=== PATIENT | male | born 1950 | race African-American/Black ===

== ENCOUNTER 2021-11-30 11:38 | Emergency (ER) | payer MEDICARE, MEDICAID ==
[~2021-11-30] VITALS: Ht 177.8 cm; Wt 73.0 kg
[~2021-11-30 11:38] MED LIST: DIVALPROEX; MAG-OXIDE
[2021-11-30 12:14] VITALS: BP 157/88
[2021-11-30 12:48] LABS: BASOPHILS % 0.8 % (0.0-2.0); HEMOGLOBIN. 14.6 g/dL (14.0-18.0); LYMPHOCYTES % 22.2 % (20.0-50.0); MEAN CORPUSCULAR HEMOGLOBIN 28.8 pg (28.0-32.0); MEAN CORPUSCULAR VOLUME 86.7 fL (80.0-94.0); MEAN PLATELET VOLUME 8.7 fl (7.4-10.4); MONOCYTES % 7.3 % (2.0-8.0); NEUTROPHILS % 68.7 % (40.0-76.0); PLATELET 155 x1000/uL (130-400); RED BLOOD CELL COUNT 5.08 mill/uL (4.7-6.1); RED CELL DISTRIBUTION WIDTH 14.7 % (11.6-14.6)
[2021-11-30 12:57] LABS: INR 0.9; PROTHROMBIN TIME 10.2 sec (9.6-11.0)
[2021-11-30 13:07] LABS: CHLORIDE 105 mEq/L (98-107)
[2021-11-30] MEDS ORDERED: LORAZEPAM 1MG TABLET PO PRN (13:30)
[2021-11-30] MEDS ORDERED: AMLODIPINE 5MG TABLET PO NR (14:00)
[2021-11-30] MEDS ORDERED: ENOXAPARIN 60MG/0.6ML SYR SUBCUT NR (17:00)
[2021-11-30] MEDS ORDERED: LEVETIRACETAM 500MG/5ML CUP PO SCH (18:00)
[2021-11-30] MEDS ORDERED: AMLODIPINE 5MG TABLET PO SCH (21:00)
[2021-11-30] MEDS ORDERED: ATORVASTATIN CALCIUM 10MG TABLET PO SCH (21:00)
[2021-12-01] MEDS ORDERED: SODIUM CHLORIDE 0.45% 1,000 ML IV SCH (06:00)
[2021-12-01] MEDS ORDERED: MELOXICAM 7.5MG TABLET PO SCH (09:00)
[2021-12-01] MEDS ORDERED: ASPIRIN 81MG EC TABLET PO SCH (09:00)
== END 2021-11-30 17:54 | disposition left against medical advice (07) ==
LOC: ER 12:29 → EDBEDREQ 14:00 → EDBEDREQTM 14:00 → ER 17:54 → CANBEDREQ 20:32
DX: R42 Dizziness and giddiness (principal); N28.9 Disorder of kidney and ureter, unspecified; F12.10 Cannabis abuse, uncomplicated; Z20.822 Contact with and (suspected) exposure to COVID-19; Z86.59 Personal history of other mental and behavioral disorders; Z98.890 Other specified postprocedural states
CPT/HCPCS: 36415; 71045; 80053; 83735; 83880; 84484; 85025; 85610; 87426; 93005; 99285; C9803

== ENCOUNTER → 2021-12-23 | Day surgery (SDC) | payer MEDICARE, MEDICAID ==
[~2021-12-23] MED LIST changes: +ACETAMINOPHEN 325MG TABLET PO PRN; +AMLO10TA80 PO; +ASPI-1406 PO; +ATROPINE SULFATE 1MG/10ML SYR IV PRN; +FENTANYL CITRATE/PF 50MCG/ML 2ML VIAL ONE; +HEPARIN 1000 UNITS/ML 10ML ONE; +IODIXANOL 320MG/ML 100 ML BOTTLE IV ONE; +LEVE750T4 PO; +LIDOCAINE HCL/PF 1% 10 MG/ML 5ML VIAL ONE; +MELO-106 PO; +MIDAZOLAM HCL 2 MG/2 ML VIAL ONE; +NICARDIPINE 100MCG/ML 10ML VIAL (CATH LAB) IV ONE; +NITROGLYCERIN 50MCG/ML 10ML VIAL (CATH LAB) IV ONE; +OMEP20TA23 PO; +ONDANSETRON HCL 4MG/2ML INJ IV PRN
== END | disposition home or self-care (01) ==
LOC: CCL 08:48
PROVIDERS: ATTEND Specialist
DX: I25.10 Atherosclerotic heart disease of native coronary artery without angina pectoris (principal); R94.39 Abnormal result of other cardiovascular function study; I47.2 Ventricular tachycardia; Z79.899 Other long term (current) drug therapy; Z98.890 Other specified postprocedural states; Z20.822 Contact with and (suspected) exposure to COVID-19
CPT/HCPCS: 87426; 93458; C1769; C1887; C1893; J1644; J2250; J3010; J3490; Q9967